=== PATIENT | female | born 1990 | race Caucasian/White ===

== ENCOUNTER 2020-07-08 09:00 | Inpatient (IN) | payer MEDICAID, OTHER ==
[2020-08-06] MEDS: Lactated Ringer's 1,000 ML IV SCH ×2 (10:29→12:09)
[2020-08-06] MEDS ORDERED: Promethazine HCl 25 MG/ML VIAL IM PRN ×3 (11:10→16:31)
[2020-08-06] MEDS ORDERED: Bicitra 30 ML UDCUP PO PRN (11:10)
[2020-08-06] MEDS ORDERED: Ondansetron PF 4 MG/2 ML Vial IVP PRN ×3 (11:10→16:31)
[2020-08-06] MEDS ORDERED: hydrALAZINE 20 MG/ML VIAL SLOW IVP PRN ×2 (11:10→16:31)
[2020-08-06] MEDS ORDERED: Famotidine/PF 20 mg/2ml Vial SLOW IVP PRN (11:10)
[2020-08-06] MEDS ORDERED: CEFAZOLIN 2 GM in Premix Bag 1 BAG IVPB SCH (11:15)
[2020-08-06] MEDS ORDERED: Phenylephrine 10 MG/ML VIAL ONE (11:23)
[2020-08-06] MEDS ORDERED: Oxytocin 10 UNITS/ML VIAL ONE ×2 (11:24→13:42)
[2020-08-06 11:25] LABS: Mean Corpuscular Hemoglobin 23.6 pg (27.0-33.0); Mean Corpuscular Volume 78.8 fl (81.6-98.3); Mean Platelet Volume 12.1 fl (7.4-10.4); Platelet Count 210 10x3/uL (150-450); RBC Distribution Width 14.6 % (11.5-14.5); Red Blood Cell (RBC) Count 3.39 10x6/uL (3.90-5.03); White Blood Cell (WBC) Count 7.9 10x3/uL (3.5-10.5)
[2020-08-06] MEDS ORDERED: Morphine PF 10 MG/10 ML VIAL ONE (11:25)
[2020-08-06] MEDS ORDERED: Bicitra 30 ML UDCUP ONE (11:55)
[2020-08-06 11:57] LABS: Hep B Surf Ag Non-Reactive S/CO (NonReactive)
[2020-08-06 11:58] LABS: Syphilis Antibody Nonreactive (Nonreactive); Syphilis Antibody Index 0.04 S/CO (<1.00 Non-Reactive)
[2020-08-06] MEDS ORDERED: Meperidine HCl/PF 25 MG/ML VIAL ONE ×2 (13:06→15:19)
[2020-08-06] MEDS ORDERED: Promethazine HCl 25 MG SUPP PR PRN (14:14)
[2020-08-06] MEDS ORDERED: Naloxone HCl 0.4 mg/ml Vial IVP PRN ×2 (14:14)
[2020-08-06] MEDS ORDERED: HYDROmorphone 2 MG/ML VIAL SLOW IVP PRN (14:14)
[2020-08-06] MEDS ORDERED: diphenhydrAMINE 50 MG/ML VIAL IVP PRN (14:14)
[2020-08-06] MEDS ORDERED: L&D-Morphine 4 MG/ML VIAL SLOW IVP PRN (14:14)
[2020-08-06] MEDS ORDERED: Naloxone HCl 0.4 mg/ml Vial IV PRN (14:14)
[2020-08-06] MEDS ORDERED: Ondansetron HCl/PF 4 MG/2 ML Vial IVP PRN (14:14)
[2020-08-06] MEDS ORDERED: Meperidine HCl/PF 25 MG/ML VIAL SLOW IVP PRN ×2 (14:14→18:41)
[2020-08-06] MEDS ORDERED: Ketorolac Tromethamine 30 MG/ML VIAL IVP SCH (14:15)
[2020-08-06] MEDS ORDERED: Communication Order-Pharmacy FS SCH (14:15)
[2020-08-06] MEDS: Ketorolac Tromethamine 30 MG/ML VIAL IVP PRN ×2 (15:57→22:11)
[2020-08-06] MEDS ORDERED: Acetaminophen 325 MG TAB PO PRN (16:31)
[2020-08-06] MEDS ORDERED: Simethicone Chewable 80 MG TAB PO PRN (16:31)
[2020-08-06] MEDS ORDERED: Lanolin Ointment 7 GM TUBE TOP PRN (16:31)
[2020-08-06] MEDS ORDERED: Adacel (T-DAP) 0.5 ML SYRINGE IM ONE (16:31)
[2020-08-06] MEDS ORDERED: diphenhydrAMINE 25 MG CAP PO PRN (16:31)
[2020-08-06 21:11] LABS: HBSAg Index 0.28 S/CO (0-0.99)
[2020-08-06] MEDS: Docusate Calcium (SURFAK) 240 MG CAP PO SCH (22:11)
[2020-08-07] MEDS: HYDROcodone/Acetaminophen 5/325 mg Tablet PO PRN ×6 (01:21→22:24)
[2020-08-07 06:08] VITALS: BMI 31.2
[2020-08-07 07:15] LABS: Hemoglobin 6.9 g/dL (12.0-15.5); Mean Corpuscular HGB CONC 30.8 g/dL (32.0-36.0); Mean Corpuscular Hemoglobin 23.8 pg (27.0-33.0); Mean Corpuscular Volume 77.2 fl (81.6-98.3); Mean Platelet Volume 11.4 fl (7.4-10.4); Platelet Count 144 10x3/uL (150-450); RBC Distribution Width 14.6 % (11.5-14.5); White Blood Cell (WBC) Count 10.9 10x3/uL (3.5-10.5)
[2020-08-07] MEDS: Prenatal Vitamin 1 TAB PO SCH (08:57)
[2020-08-07] MEDS: Docusate Calcium (SURFAK) 240 MG CAP PO SCH ×2 (08:57→22:22)
[2020-08-07] MEDS: Ibuprofen 800 MG TAB PO SCH ×2 (13:45→22:22)
[2020-08-07] MEDS ORDERED: Ibuprofen 800 MG TAB PO SCH (22:00)
[2020-08-08] MEDS: Ibuprofen 800 MG TAB PO SCH (05:08)
[2020-08-08] MEDS: HYDROcodone/Acetaminophen 5/325 mg Tablet PO PRN ×2 (05:09→09:09)
[2020-08-08 07:25] LABS: #Monocytes 0.5 10x3/uL (0.0-1.1); #Neutrophils 6.8 10x3/uL (1.5-8.4); %Basophils 0.1 % (0.0-2.0); %Eosinophils 0.5 % (0.0-6.0); %Lymphocytes 9.4 % (18.0-47.0); %Monocytes 5.7 % (0.0-10.0); %Neutrophils 83.4 % (40.0-75.0); Mean Corpuscular HGB CONC 30.3 g/dL (32.0-36.0); Mean Corpuscular Hemoglobin 23.8 pg (27.0-33.0); Mean Corpuscular Volume 78.6 fl (81.6-98.3); Mean Platelet Volume 10.9 fl (7.4-10.4); Platelet Count 169 10x3/uL (150-450); RBC Distribution Width 14.7 % (11.5-14.5); Red Blood Cell (RBC) Count 2.94 10x6/uL (3.90-5.03); White Blood Cell (WBC) Count 8.2 10x3/uL (3.5-10.5)
[2020-08-08] MEDS: Docusate Calcium (SURFAK) 240 MG CAP PO SCH (08:40)
[2020-08-08] MEDS: Prenatal Vitamin 1 TAB PO SCH (08:40)
[2020-08-08 12:27] VITALS: BP 126/73; TEMP 97.9
== END 2020-08-08 12:20 | disposition home or self-care (01) | DRG 788 ==
LOC: CSHLD 08-06 09:53 → CSHPP 08-06 16:40 → EDSTATUS 08-12 17:23
PROVIDERS: ADMIT Obstetrics & Gynecology; ATTEND Obstetrics & Gynecology
PROC: 10D00Z1 Extraction of Products of Conception, Low, Open Approach (ICD-10-PCS; 2020-08-06)
PROC: 30233N1 Transfusion of Nonautologous Red Blood Cells into Peripheral Vein, Percutaneous Approach (ICD-10-PCS; principal; 2020-08-07)
DX: O34.211 Maternal care for low transverse scar from previous cesarean delivery (principal); Z20.822 Contact with and (suspected) exposure to COVID-19; Z3A.39 39 weeks gestation of pregnancy; Z37.0 Single live birth; Z98.84 Bariatric surgery status
CPT/HCPCS: 36430; 51702; 85025; 85027; 86780; 86850; 86900; 86901; 87340; 88305; J0690; J1885; J2175; J2270; J2370; P9016

== ENCOUNTER 2021-11-24 05:10 | Emergency (ER) | payer BC | END 2021-11-24 05:58 | disposition home or self-care (01) | LOC: CSHERS 05:10 | DX: L02.435 Carbuncle of right lower limb (principal); L02.425 Furuncle of right lower limb; L03.115 Cellulitis of right lower limb | CPT/HCPCS: 99282 ==

== ENCOUNTER 2021-11-26 15:46 | Emergency (ER) | payer BC, OTHER ==
[2021-11-26 16:48] LABS: #Eosinphils 0.1 10x3/uL (0.0-0.5); #Monocytes 0.2 10x3/uL (0.0-1.1); #Neutrophils 12.2 10x3/uL (1.5-8.4); %Basophils 0.2 % (0.0-2.0); %Eosinophils 0.6 % (0.0-6.0); %Lymphocytes 11.8 % (18.0-47.0); %Monocytes 1.5 % (0.0-10.0); %Neutrophils 85.3 % (40.0-75.0); Mean Corpuscular HGB CONC 29.8 g/dL (32.0-36.0); Mean Corpuscular Hemoglobin 23.3 pg (27.0-33.0); Mean Corpuscular Volume 78.3 fl (81.6-98.3); Mean Platelet Volume 10.1 fl (7.4-10.4); Platelet Count 342 10x3/uL (150-450); RBC Distribution Width 24.5 % (11.5-14.5); Red Blood Cell (RBC) Count 4.29 10x6/uL (3.90-5.03); White Blood Cell (WBC) Count 14.3 10x3/uL (3.5-10.5)
[2021-11-26 17:05] LABS: ALT (SGPT) 21 U/L (8-55); AST (SGOT) 33 U/L (5-34); Albumin 3.7 g/dL (3.5-5.0); Alkaline Phosphatase 108 U/L (40-110); Anion Gap 13 mmol/L (10-20); BUN (Urea Nitrogen) 12 mg/dL (7.0-18.7); Bilirubin, Total 1.1 mg/dL (0.2-1.2); Calc. Creatinine Clearance 0 mL/min (70-130); Calcium 9.6 mg/dL (7.8-10.44); Carbon Dioxide 23 mmol/L (22-29); Chloride 102 mmol/L (98-107); Estimated GFR 105; Globulin 3.5 g/dL (2.4-3.5); Glucose 127 mg/dL (70-105); Potassium 3.6 mmol/L (3.5-5.1); Protein, Total 7.2 g/dL (6.0-8.3); Sodium 134 mmol/L (136-145)
[2021-11-26 17:09] LABS: Bilirubin Neg (Negative); Blood, Urine 25 (Negative); Clarity Clear (Clear); Glucose, Urine (Dipstick) Normal (Negative); Ketone, Urine 5 mg/dL (Negative); Leukocyte 100 (Negative); Nitrite Negative (Negative); Protein, Urine (Dipstick) 100 mg/dl (Neg-Trace); Specific Gravity, Urine 1.015 (1.002-1.036)
[2021-11-26 17:31] LABS: Bacteria/HPF 2+ HPF (None Seen); Mucous/LPF 4+ LPF (<2+)
[2021-11-26] MEDS ORDERED: Cefepime 2 GM VIAL ONE (17:49)
[2021-11-26] MEDS ORDERED: Vancomycin HCl 500 MG VIAL ONE (18:14)
[2021-11-26 19:29] LABS: Anisocytosis SLIGHT = 6-15 cells (100X) (0-5/hpf); Hypochromia SLIGHT = 6-15 cells (100X) (0-5/hpf); Microcytosis SLIGHT = 6-15 cells (100X) (0-5/hpf); Ovalocytes SLIGHT = 2-5 cells (100X) (0-1/hpf); Platelet Morphology Comment Appears Adequate
== END 2021-11-26 21:05 | disposition home or self-care (01) ==
LOC: CSHERS 15:46
DX: L03.115 Cellulitis of right lower limb (principal)
CPT/HCPCS: 36415; 80053; 81003; 81015; 82550; 83605; 85025; 87040; 87086; J0692; J3370

== ENCOUNTER 2021-11-27 16:43 | Inpatient (IN) | payer BC, OTHER ==
[2021-11-27 18:19] LABS: #Basophils 0.1 10x3/uL (0.0-0.2); #Eosinphils 0.2 10x3/uL (0.0-0.5); #Monocytes 0.4 10x3/uL (0.0-1.1); #Neutrophils 5.3 10x3/uL (1.5-8.4); %Basophils 0.7 % (0.0-2.0); %Eosinophils 2.1 % (0.0-6.0); %Lymphocytes 21.7 % (18.0-47.0); %Monocytes 5.2 % (0.0-10.0); %Neutrophils 69.9 % (40.0-75.0); Hemoglobin 9.9 g/dL (12.0-15.5); Mean Corpuscular HGB CONC 30.6 g/dL (32.0-36.0); Mean Corpuscular Hemoglobin 23.4 pg (27.0-33.0); Mean Corpuscular Volume 76.6 fl (81.6-98.3); Mean Platelet Volume 9.7 fl (7.4-10.4); Platelet Count 369 10x3/uL (150-450); RBC Distribution Width 24.5 % (11.5-14.5); Red Blood Cell (RBC) Count 4.23 10x6/uL (3.90-5.03); White Blood Cell (WBC) Count 7.5 10x3/uL (3.5-10.5)
[2021-11-27 18:22] LABS: ALT (SGPT) 22 U/L (8-55); AST (SGOT) 22 U/L (5-34); Albumin 3.7 g/dL (3.5-5.0); Alkaline Phosphatase 96 U/L (40-110); Anion Gap 11 mmol/L (10-20); BUN (Urea Nitrogen) 9 mg/dL (7.0-18.7); Bilirubin, Total 0.3 mg/dL (0.2-1.2); Calc. Creatinine Clearance 0 mL/min (70-130); Calcium 9.4 mg/dL (7.8-10.44); Carbon Dioxide 25 mmol/L (22-29); Chloride 104 mmol/L (98-107); Estimated GFR 116; Globulin 3.5 g/dL (2.4-3.5); Glucose 98 mg/dL (70-105); Potassium 3.4 mmol/L (3.5-5.1); Protein, Total 7.2 g/dL (6.0-8.3); Sodium 137 mmol/L (136-145)
[2021-11-27 19:01] LABS: Anisocytosis MODERATE=16-30 cells (100X) (0-5/hpf); Hypochromia SLIGHT = 6-15 cells (100X) (0-5/hpf); Microcytosis MODERATE=15-30 cells (100X) (0-5/hpf)
[2021-11-27 19:03] LABS: Elliptocytes SLIGHT = 2-5 cells (100X) (0-1/hpf); Platelet Morphology Comment Appears Adequate
[2021-11-27] MEDS ORDERED: Boostrix 0.5 ML (Tdap) VIAL ONE (19:53)
[2021-11-27] MEDS ORDERED: Cefepime 2 GM VIAL ONE (19:53)
[2021-11-27 20:57] VITALS: BMI 29.5
[2021-11-27] MEDS ORDERED: Senokot S 8.6-50 MG TAB PO PRN (21:55)
[2021-11-27] MEDS ORDERED: Acetaminophen 325 MG TAB PO PRN (21:55)
[2021-11-27] MEDS ORDERED: Calcium Carbonate 500 MG ChewTAB PO PRN (21:55)
[2021-11-27] MEDS ORDERED: Ondansetron PF 4 MG/2 ML Vial IVP PRN (21:55)
[2021-11-27] MEDS ORDERED: Ondansetron ODT 4 MG TAB PO PRN (21:55)
[2021-11-27] MEDS ORDERED: Potassium Chloride 20 MEQ TAB PO SCH (22:00)
[2021-11-27] MEDS ORDERED: lamoTRIgine 25 MG TAB PO SCH (22:15)
[2021-11-27] MEDS ORDERED: Vancomycin HCl 1 GM in Sodium Chloride 0.9% 250 ML 250 ML IVPB SCH (22:45)
[2021-11-27 22:47] LABS: Magnesium 1.9 mg/dL (1.6-2.6)
[2021-11-27] MEDS: HYDROcodone/Acetaminophen 5/325 mg Tablet PO PRN (23:16)
[2021-11-28 03:59] LABS: Hemoglobin 8.9 g/dL (12.0-15.5); Mean Corpuscular HGB CONC 30.9 g/dL (32.0-36.0); Mean Corpuscular Hemoglobin 23.6 pg (27.0-33.0); Mean Corpuscular Volume 76.4 fl (81.6-98.3); Mean Platelet Volume 9.6 fl (7.4-10.4); Platelet Count 340 10x3/uL (150-450); RBC Distribution Width 24.3 % (11.5-14.5); Red Blood Cell (RBC) Count 3.77 10x6/uL (3.90-5.03); White Blood Cell (WBC) Count 5.1 10x3/uL (3.5-10.5)
[2021-11-28 04:05] LABS: Anion Gap 12 mmol/L (10-20); BUN (Urea Nitrogen) 11 mg/dL (7.0-18.7); Calc. Creatinine Clearance 188 mL/min (70-130); Calcium 8.8 mg/dL (7.8-10.44); Carbon Dioxide 24 mmol/L (22-29); Chloride 108 mmol/L (98-107); Estimated GFR 122; Glucose 95 mg/dL (70-105); Potassium 3.7 mmol/L (3.5-5.1); Sodium 140 mmol/L (136-145)
[2021-11-28 04:06] LABS: MDiff Complete? YES
[2021-11-28 04:17] LABS: Eosinophils 5 % (0-10); Lymphocytes 37 % (21-51); Monocytes 4 % (0-10); Neutrophil 53 % (42-75)
[2021-11-28 04:18] LABS: Platelet Morphology Comment Appears Adequate; RBC Morphology Normal
[2021-11-28] MEDS ORDERED: Vancomycin 1.5 GRAM/300 ML BAG IVPB SCH (08:00)
[2021-11-28] MEDS ORDERED: Cefepime 2 GM in Sodium Chloride 0.9% 100 ML IVPB SCH (08:00)
[2021-11-28] MEDS ORDERED: Sodium Chloride 0.9% 1,000 ML IV SCH (08:15)
[2021-11-28] MEDS: Enoxaparin Sodium 40 MG/0.4 ML SYRINGE SC SCH (08:18)
[2021-11-28] MEDS: lamoTRIgine 25 MG TAB PO SCH ×2 (08:19→21:09)
[2021-11-28] MEDS ORDERED: DEXTROAMPHETAMINE PO SCH (09:00)
[2021-11-28] MEDS ORDERED: lamoTRIgine 25 MG TAB PO SCH (09:00)
[2021-11-28] MEDS ORDERED: VANCOMYCIN 1.5 GM in Sodium Chloride 0.9% 250 ML 300 ML IVPB SCH (09:00)
[2021-11-28] MEDS ORDERED: AMPHETAMINE PO SCH (09:00)
[2021-11-28] MEDS: HYDROcodone/Acetaminophen 5/325 mg Tablet PO PRN (12:37)
[2021-11-28] MEDS: Vancomycin HCl 1 GM in Sodium Chloride 0.9% 250 ML 250 ML IVPB SCH (17:34)
[2021-11-29] MEDS: Vancomycin HCl 1 GM in Sodium Chloride 0.9% 250 ML 250 ML IVPB SCH (01:06)
[2021-11-29 04:19] LABS: Anion Gap 13 mmol/L (10-20); BUN (Urea Nitrogen) 9 mg/dL (7.0-18.7); Calc. Creatinine Clearance 208 mL/min (70-130); Calcium 8.3 mg/dL (7.8-10.44); Carbon Dioxide 21 mmol/L (22-29); Chloride 108 mmol/L (98-107); Estimated GFR 125; Glucose 80 mg/dL (70-105); Potassium 3.8 mmol/L (3.5-5.1); Sodium 138 mmol/L (136-145)
[2021-11-29 04:25] LABS: Hemoglobin 8.8 g/dL (12.0-15.5); Mean Corpuscular Hemoglobin 23.6 pg (27.0-33.0); Mean Corpuscular Volume 76.1 fl (81.6-98.3); Mean Platelet Volume 9.4 fl (7.4-10.4); Platelet Count 340 10x3/uL (150-450); Red Blood Cell (RBC) Count 3.73 10x6/uL (3.90-5.03); White Blood Cell (WBC) Count 5.1 10x3/uL (3.5-10.5)
[2021-11-29 04:56] LABS: MDiff Complete? YES
[2021-11-29 05:03] LABS: Eosinophils 3 % (0-10); Lymphocytes 39 % (21-51); Monocytes 6 % (0-10); Neutrophil 51 % (42-75)
[2021-11-29 05:04] LABS: Anisocytosis SLIGHT = 6-15 cells (100X) (0-5/hpf); Elliptocytes SLIGHT = 2-5 cells (100X) (0-1/hpf); Microcytosis SLIGHT = 6-15 cells (100X) (0-5/hpf)
[2021-11-29 08:22] LABS: Vancomycin, Trough 20.5 ug/mL
[2021-11-29] MEDS: Enoxaparin Sodium 40 MG/0.4 ML SYRINGE SC SCH (09:36)
[2021-11-29] MEDS: lamoTRIgine 25 MG TAB PO SCH (09:36)
[2021-11-29] MEDS: HYDROcodone/Acetaminophen 5/325 mg Tablet PO PRN (14:54)
[2021-11-29] MEDS ORDERED: Sodium Chloride 0.9% 250 ML 250 ML ONE ×2 (15:35→15:36)
[2021-11-29] MEDS ORDERED: Vancomycin HCl 1 GM in Sodium Chloride 0.9% 250 ML 250 ML IVPB SCH (16:00)
[2021-11-29 16:07] VITALS: BP 105/58; TEMP 97.9
[2021-11-29] MEDS ORDERED: Morphine 4 MG/ML VIAL SLOW IVP SCH (17:00)
== END 2021-11-29 18:40 | disposition home or self-care (01) | DRG 603 ==
LOC: CSHERS 16:43 → CSHTELE 19:55 → INTOOBSV 19:55 → OBSVTOIN 11-29 08:53
PROVIDERS: ADMIT Family Medicine; ATTEND Family Medicine
PROC: 0J9L0ZZ Drainage of Right Upper Leg Subcutaneous Tissue and Fascia, Open Approach (ICD-10-PCS; principal; 2021-11-29)
DX: L02.415 Cutaneous abscess of right lower limb (principal); F31.9 Bipolar disorder, unspecified; L03.115 Cellulitis of right lower limb; F90.9 Attention-deficit hyperactivity disorder, unspecified type; E87.6 Hypokalemia; F41.9 Anxiety disorder, unspecified; Z90.49 Acquired absence of other specified parts of digestive tract; Z20.822 Contact with and (suspected) exposure to COVID-19
CPT/HCPCS: 27301; 36415; 80048; 80053; 80202; 81003; 81015; 82550; 83605; 83735; 85025; 85652; 86140; 87040; 87086; 90471; 90715; 96365; 96366; 96368; 96372; 96375; 96376; 97139; G0378; J0692; J1650; J2270; J2405; J3370; J3490; J7050; U0003; U0005